=== PATIENT | male | born 1945 | race Caucasian/White ===

== ENCOUNTER 2017-01-08 18:05 | Emergency (ER) | payer OTHER ==
[~2017-01-08] VITALS: Ht 175.3 cm; Wt 90.3 kg
[2017-01-08 20:35] VITALS: BP 127/66
== END 2017-01-08 20:35 | disposition home or self-care (01) ==
LOC: ED 18:05
DX: S91.331A Puncture wound without foreign body, right foot, initial encounter (principal); I10 Essential (primary) hypertension; E11.9 Type 2 diabetes mellitus without complications; Z79.4 Long term (current) use of insulin; Z79.899 Other long term (current) drug therapy; W26.8XXA Contact with other sharp object(s), not elsewhere classified, initial encounter; Y93.89 Activity, other specified; Y92.89 Other specified places as the place of occurrence of the external cause; Y99.8 Other external cause status
CPT/HCPCS: 90715; J0696

== ENCOUNTER 2017-08-04 14:05 | Emergency (ER) | payer OTHER ==
[~2017-08-04] VITALS: Ht 172.7 cm; Wt 92.1 kg
[2017-08-04 14:12] VITALS: Ht 172.7 cm; Wt 92.1 kg
[2017-08-04 17:48] VITALS: BP 119/63
== END 2017-08-04 17:48 | disposition home or self-care (01) ==
LOC: ED 14:05
DX: I16.0 Hypertensive urgency (principal); R11.2 Nausea with vomiting, unspecified; E11.22 Type 2 diabetes mellitus with diabetic chronic kidney disease; I12.0 Hypertensive chronic kidney disease with stage 5 chronic kidney disease or end stage renal disease; N18.6 End stage renal disease; Z99.2 Dependence on renal dialysis

== ENCOUNTER 2018-01-14 14:17 | Emergency (ER) | payer OTHER ==
[~2018-01-14] VITALS: Ht 175.3 cm; Wt 93.0 kg
[2018-01-14 14:28] VITALS: BP 111/55; Ht 175.3 cm; Wt 93.0 kg
== END 2018-01-14 14:58 | disposition home or self-care (01) ==
LOC: ED 14:17
DX: L72.3 Sebaceous cyst (principal); I10 Essential (primary) hypertension; E11.9 Type 2 diabetes mellitus without complications

== ENCOUNTER 2019-01-24 09:44 | Inpatient (IN) | payer OTHER ==
[~2019-01-24] VITALS: Ht 175.3 cm; Wt 88.5 kg
[2019-01-24 10:53] LABS: BASOPHIL % 0.2 % (0-2); PLATELET COUNT 214 x10^3mcL (130-400); RED CELL DISTRIBUTION WIDTH 14.1 % (11.5-14.5)
[2019-01-24 11:02] LABS: ALBUMIN 4.1 g/dL (3.4-5.0); ALKALINE PHOSPHATASE 136 U/L (46-116); ALT/SGPT 12 U/L (16-63); AST/SGOT 16 U/L (15-37); BILIRUBIN TOTAL 0.6 mg/dL (0.20-1.00); CALCIUM 8.2 mg/dL (8.5-10.1); CARBON DIOXIDE 25.1 mmol/L (21-32); CHLORIDE SERUM 102 mmol/L (98-107); GLUCOSE SERUM 111 mg/dL (74-106); LIPASE 169 IU/L (73-393); SODIUM SERUM 141 mmol/L (136-145)
[2019-01-24 11:11] LABS: CREATININE SERUM 9.2 mg/dL (0.7-1.3); POTASSIUM SERUM 6.5 mmol/L (3.5-5.1)
[2019-01-24 13:10] LABS: microscopic required? YES; urine erythrocyte 3+ (NEGATIVE)
[2019-01-24 13:11] LABS: CREATININE UR 54.4 mg/dL
[2019-01-24 13:19] LABS: CALCIUM 7.8 mg/dL (8.5-10.1); CHLORIDE SERUM 107 mmol/L (98-107); GLUCOSE SERUM 114 mg/dL (74-106); SODIUM SERUM 142 mmol/L (136-145)
[2019-01-24 13:21] LABS: CREATININE SERUM 9.5 mg/dL (0.7-1.3); POTASSIUM SERUM 6.2 mmol/L (3.5-5.1)
[2019-01-24 14:13] VITALS: BP 126/67
[2019-01-24 14:33] VITALS: Ht 175.3 cm; Wt 88.5 kg
[2019-01-24 17:02] VITALS: BP 140/71
[2019-01-24 19:34] VITALS: BP 147/83
[2019-01-25] VITALS (7 sets, daily range): BP systolic 159–173; BP diastolic 58–78
[2019-01-25 07:00] LABS: BASOPHIL % 0.4 % (0-2); PLATELET COUNT 180 x10^3mcL (130-400); RED CELL DISTRIBUTION WIDTH 13.5 % (11.5-14.5)
[2019-01-25 07:37] LABS: CALCIUM 7.5 mg/dL (8.5-10.1); CARBON DIOXIDE 31.1 mmol/L (21-32); CHLORIDE SERUM 102 mmol/L (98-107); GLUCOSE SERUM 70 mg/dL (74-106); POTASSIUM SERUM 4.1 mmol/L (3.5-5.1); SODIUM SERUM 143 mmol/L (136-145)
[2019-01-25 07:48] LABS: CREATININE SERUM 6.2 mg/dL (0.7-1.3)
[2019-01-26] VITALS (7 sets, daily range): BP systolic 141–181; BP diastolic 70–97
[2019-01-26 07:13] LABS: BASOPHIL % 0.3 % (0-2); CALCIUM 7.1 mg/dL (8.5-10.1); CARBON DIOXIDE 25.6 mmol/L (21-32); CHLORIDE SERUM 100 mmol/L (98-107); GLUCOSE SERUM 75 mg/dL (74-106); PLATELET COUNT 173 x10^3mcL (130-400); POTASSIUM SERUM 5.2 mmol/L (3.5-5.1); RED CELL DISTRIBUTION WIDTH 13.8 % (11.5-14.5); SODIUM SERUM 138 mmol/L (136-145)
[2019-01-27 05:45] VITALS: BP 174/81
[2019-01-27 07:33] LABS: BASOPHIL % 0.5 % (0-2); PLATELET COUNT 176 x10^3mcL (130-400); RED CELL DISTRIBUTION WIDTH 13.8 % (11.5-14.5)
[2019-01-27 07:58] LABS: CALCIUM 7.1 mg/dL (8.5-10.1); CARBON DIOXIDE 28.7 mmol/L (21-32); CHLORIDE SERUM 99 mmol/L (98-107); GLUCOSE SERUM 75 mg/dL (74-106); POTASSIUM SERUM 4.3 mmol/L (3.5-5.1); SODIUM SERUM 140 mmol/L (136-145)
[2019-01-27 08:00] LABS: CREATININE SERUM 6.4 mg/dL (0.7-1.3)
[2019-01-27 08:53] VITALS: BP 163/73
[2019-01-27 14:36] VITALS: BP 177/73
[2019-01-27 17:37] VITALS: BP 194/84
[2019-01-27 18:26] VITALS: BP 144/92
[2019-01-28 01:09] VITALS: BP 175/80
[2019-01-28 04:49] VITALS: BP 165/70
[2019-01-28 07:19] LABS: BASOPHIL % 0.4 % (0-2); PLATELET COUNT 180 x10^3mcL (130-400); RED CELL DISTRIBUTION WIDTH 13.7 % (11.5-14.5)
[2019-01-28 07:35] LABS: CALCIUM 6.8 mg/dL (8.5-10.1); CARBON DIOXIDE 26.1 mmol/L (21-32); CHLORIDE SERUM 99 mmol/L (98-107); CREATININE SERUM 8.2 mg/dL (0.7-1.3); GLUCOSE SERUM 111 mg/dL (74-106); POTASSIUM SERUM 4.9 mmol/L (3.5-5.1); SODIUM SERUM 137 mmol/L (136-145)
[2019-01-28 08:05] VITALS: BP 154/70
[2019-01-28] MEDS ORDERED: NOR5 PO (11:54)
[2019-01-28] MEDS ORDERED: ZES20 PO (11:55)
[2019-01-28] MEDS ORDERED: PROS5 PO (11:56)
[2019-01-28 14:09] VITALS: BP 159/77
== END 2019-01-28 18:01 | disposition home or self-care (01) | DRG 391 ==
LOC: ED 09:44 → DU 12:55 → MU 01-26 15:47 → DU 01-27 00:42 → MU 01-27 00:44
PROVIDERS: Emergency Medicine; Internal Medicine; ADMIT General Practice
DX: K52.9 Noninfective gastroenteritis and colitis, unspecified (principal); N18.6 End stage renal disease; I12.0 Hypertensive chronic kidney disease with stage 5 chronic kidney disease or end stage renal disease; R31.9 Hematuria, unspecified; E11.22 Type 2 diabetes mellitus with diabetic chronic kidney disease; E87.5 Hyperkalemia; E11.65 Type 2 diabetes mellitus with hyperglycemia; I25.10 Atherosclerotic heart disease of native coronary artery without angina pectoris; N40.0 Benign prostatic hyperplasia without lower urinary tract symptoms; Z99.2 Dependence on renal dialysis; Z79.84 Long term (current) use of oral hypoglycemic drugs
CPT/HCPCS: 82962; 97116-GP; 97530-GP; C9113; G0378; J0696; J1815; J2270; J2405; J3490; J7030; J7040; J7050; J7613; Q0092